=== PATIENT | male | born 1995 | race African-American/Black ===

== ENCOUNTER 2018-02-27 16:25 | Emergency (ER) | payer OTHER ==
[2018-02-27] MEDS ORDERED: DIPH,PERTUS(ACELL)TETVAC-LF 0.5 ML VIAL IM ONE (16:37)
[2018-02-27 16:43] VITALS: RESP 18
[2018-02-27] MEDS ORDERED: HYDROcodone/APAP 5-325MG 1 EACH TAB PO STA (16:43)
--- NOTE | 2018-02-27 17:24 | ED ---
Lower Extremity Injury HPI - General Chief Complaint: Extremity Injury, Lower Stated Complaint: Foot injury Time Seen by Provider: 02/27/18 16:36 Source: patient, RN notes reviewed Mode of arrival: wheelchair Limitations: no limitations - History of Present Illness Initial Comments: This is a 22-year-old male who presents to the emergency department with chief complaint of left foot injury. Patient states that 30 minutes prior to arrival he was unloading a [employer] truck. He states that a refrigerator fell onto his left foot. He states that initially after, he did have normal range of motion of the foot. He notices when he moves his foot the bleeding increases. Patient is wearing a sock and is saturated in blood. Patient states that he is unsure if he is up-to-date with his tetanus vaccination. Denies any other injuries or trauma. Denies fever, chills, chest pain, shortness of breath, abdominal pain, nausea or vomiting, constipation or diarrhea, dysuria or hematuria, numbness or tingling, headache or vision changes. - Related Data Previous Rx's Medication Instructions Recorded Ibuprofen [Motrin] 600 mg PO Q6HR PRN #20 tab 04/19/16 Lidocaine Viscous [Xylocaine 5 ml PO BID PRN 10 Days ml 04/19/16 Viscous 2%] Ibuprofen 600 mg PO Q6HR #30 tablet 02/27/18 Allergies Allergy/AdvReac Type Severity Reaction Status Date / Time No Known Allergies Allergy Verified 02/27/18 16:42 Review of Systems ROS Statement: Those systems with pertinent positive or pertinent negative responses have been documented in the HPI. ROS Other: All systems not noted in ROS Statement are negative. Past Medical History Past Medical History: No Reported History History of Any Multi-Drug Resistant Organisms: None Reported Additional Past Surgical History / Comment(s): cataract surgery Past Psychological History: No Psychological Hx Reported Smoking Status: Never smoker Past Alcohol Use History: Occasional Past Drug Use History: None Reported General Exam - General Exam Comments Initial Comments: General: Awake and alert, well-developed; in no apparent distress. HEENT: Head atraumatic, normocephalic. Pupils are equal, round and reactive to light. Extraocular movements intact. Oropharynx moist without erythema or exudate. Neck: Supple. Normal ROM. Cardiovascular: Regular rate and rhythm. No murmurs, rubs or gallops. Chest symmetrical. Respiratory: Lungs clear to auscultation bilaterally. No wheezes, rales or rhonchi. Normal respiratory effort with no use of accessory muscles. Musculoskeletal: Normal range of motion of left toes and ankle. There is an approximately 0.5 cm laceration to the mid dorsal aspect of the left foot. Surrounding hematoma covering majority of the dorsal aspect. Sensation is intact. Pedal pulses are 2+ equal and palpable bilaterally. Skin: Freeman, warm and dry without rashes. Neurological: Alert and oriented x3. CN II-XII grossly intact. Speech is fluent and answers are appropriate. No focal neuro deficits. Psychiatric: Normal mood and affect. No overt signs of depression or anxiety noted. Limitations: no limitations Course Vital Signs 02/27/18 16:39 Temperature 97.6 F Pulse Rate 99 Respiratory 18 Rate Blood Pressure 110/74 O2 Sat by Pulse 98 Oximetry Medical Decision Making - Medical Decision Making This is a 22-year-old male who presented to the emergency department with chief complaint of left foot injury. He states that a refrigerator fell onto his left foot. He states that he was wearing steel toe boots at the time. On physical examination, there is a large hematoma to the dorsal aspect of the left foot. There is a small overlying laceration. A pressure dressing was placed and patient tolerated well without complication. He is neurovascularly intact and capillary refill is less than 2 seconds. This case was discussed with attending physician, Dr. Flores who also evaluated the patient. X-rays of the left foot revealed no acute fractures or dislocations. It did reveal evidence of a small foreign body. On further investigation, it was determined that this was a small radiopaque object within patient's sock. Patient will be discharged home with recommendation to rest, ice, elevate and apply compression. He will also be given a prescription for ibuprofen. He is to follow-up with a primary care provider within 1-2 days. Patient is in agreement with plan and voices understanding. All questions were answered. - Radiology Data Radiology results: report reviewed X-ray left foot impression: 1. Soft tissue swelling, but negative for fracture or malalignment. 2. Radiopaque 1 mm cutaneous foreign body. Disposition Clinical Impression: Traumatic hematoma of foot Disposition: HOME SELF-CARE Condition: Good Instructions: Hematoma (ED), Foot Contusion (ED) Additional Instructions: Please take medications as prescribed. Please follow up with primary care provider within 1-2 days. Return to emergency department if symptoms should worsen or any concerns arise. Prescriptions: Ibuprofen 600 mg PO Q6HR #30 tablet Is patient prescribed a controlled substance at d/c from ED?: No Referrals: None,Stated [Primary Care Provider] - 1-2 days Kelsea Cleary MD [REFERRING] - 1-2 days Ignacio Casanova MD [STAFF PHYSICIAN] - 1-2 days Time of Disposition: 18:10
--- NOTE | 2018-02-27 17:50 | XR ---
PROCEDURE: XR foot complete LT 3 views DATE AND TIME: 02/27/2018 5:03 PM REFERRING PHYSICIAN: Liv Kruse CLINICAL INDICATION: PHH, Pain following crushing injury, refrigerator fallen foot TECHNIQUE: Department protocol. COMPARISON: None FINDINGS: There is no fracture or malalignment. The soft tissues are remarkable for diffuse soft tissue swelling over the metatarsals. No soft tissue emphysema. However, there is a 1 mm cutaneous radiopaque foreign body in the plantar soft tissues spivey perimposed over the third metacarpal shaft. IMPRESSION: 1. Soft tissue swelling, but negative for fracture or malalignment. 2. Radiopaque 1 mm cutaneous foreign body.
[2018-02-27 18:20] VITALS: BP 155/72; PULSE 90; TEMP 97.3
== END 2018-02-27 18:20 | disposition home or self-care (01) ==
LOC: EC 16:25
DX: S90.32XA Contusion of left foot, initial encounter (principal); Z23 Encounter for immunization; W20.8XXA Other cause of strike by thrown, projected or falling object, initial encounter; Y92.89 Other specified places as the place of occurrence of the external cause
CPT/HCPCS: 90471; 90715; 99283

== ENCOUNTER 2018-03-07 18:39 | Emergency (ER) | payer OTHER ==
[2018-03-07 18:53] VITALS: BP 133/83; PULSE 80; RESP 20; TEMP 98.8
--- NOTE | 2018-03-07 19:49 | XR ---
EXAMINATION TYPE: XR foot complete LT DATE OF EXAM: 03/07/2018 CLINICAL HISTORY: Left foot pain after injury today. TECHNIQUE: Frontal, lateral, and oblique images of the left foot are obtained. COMPARISON: Left foot x-ray from 8 days ago. FINDINGS: There is no acute fracture/dislocation evident in the left foot. Persistent flexion in the distal toes is identified. The joint spaces in the left foot appear within normal limits. The over lying soft tissue appears unremarkable. There is interval removal of the plantar surface foreign body . IMPRESSION: There is no acute fracture or dislocation in the left foot.
--- NOTE | 2018-03-07 20:25 | ED ---
General Adult HPI - General Chief complaint: Extremity Injury, Lower Stated complaint: LEFT FOOT INJURY Time Seen by Provider: 03/07/18 19:32 Source: patient, RN notes reviewed Mode of arrival: wheelchair Limitations: no limitations - History of Present Illness Initial comments: 22-year-old male presents to the emergency department for chief complaint of left foot pain times one week. Patient states that a week ago he was loading a [employer] when he dropped a refrigerator on his foot. Patient states it has been painful since then. Patient has been able to walk on the foot. He has been taking Motrin and icing it. He states he has tried to keep it elevated but hasn 't done it too much. He states that since he has been at the emergency department he has kept it elevated in the swelling has decreased. Patient states it is painful and would like something for pain. Patient denies any other injuries during this incident including neck or back injuries. Patient has no other complaints at this time including shortness of breath, chest pain, abdominal pain, nausea or vomiting, headache, or visual changes. - Related Data Home Medications Medication Instructions Recorded Confirmed Ibuprofen 600 mg PO Q6HR PRN 03/07/18 03/07/18 Previous Rx's Medication Instructions Recorded Acetaminophen-Codeine 300-30mg 1 tab PO Q8H PRN #9 tablet 03/07/18 [Tylenol #3] Cephalexin [Keflex] 500 mg PO Q12HR #20 cap 03/07/18 Ibuprofen [Motrin] 600 mg PO Q8HR PRN #20 tab 03/07/18 Allergies Allergy/AdvReac Type Severity Reaction Status Date / Time No Known Allergies Allergy Verified 03/07/18 19:25 Review of Systems ROS Statement: Those systems with pertinent positive or pertinent negative responses have been documented in the HPI. ROS Other: All systems not noted in ROS Statement are negative. Past Medical History Past Medical History: No Reported History History of Any Multi-Drug Resistant Organisms: None Reported Additional Past Surgical History / Comment(s): cataract surgery Past Psychological History: No Psychological Hx Reported Smoking Status: Never smoker Past Alcohol Use History: Occasional Past Drug Use History: None Reported General Exam Limitations: no limitations General appearance: alert, in no apparent distress Neck exam: Present: normal inspection, full ROM. Absent: tenderness, meningismus, lymphadenopathy Respiratory exam: Present: normal lung sounds bilaterally. Absent: respiratory distress, wheezes, rales, rhonchi, stridor Cardiovascular Exam: Present: regular rate, normal rhythm, normal heart sounds. Absent: systolic murmur, diastolic murmur, rubs, gallop, clicks Extremities exam: Present: full ROM (Patient has full range of motion of the left ankle and foot.), tenderness (Patient has tenderness to the dorsal aspect of the left foot. No tenderness to the lateral or medial malleoli.), normal capillary refill (Cap refill < 2 seconds in BLE. Pedal pulse 2+ in BLE. ), joint swelling (Patient has moderate swelling on the dorsal aspect of the L foot. No ecchymosis noted.), other (Patient has moderate swelling of the left foot. there is also a small break in the skin that appears to be a scab. No signs of infection or cellulitis including spreading redness, streaking redness , or drainage from the area.) Course Vital Signs 03/07/18 18:50 Temperature 98.8 F Pulse Rate 80 Respiratory 20 Rate Blood Pressure 133/83 O2 Sat by Pulse 99 Oximetry Medical Decision Making - Medical Decision Making 22-year-old male presents to the emergency department for chief complaint of left foot pain after dropping a refrigerator on his foot about one week ago. Patient has been able to walk on it. He states the dorsal aspect of the foot is painful. Patient states the swelling is getting better over the week. On exam the dorsal aspect of the foot is swollen. Neurovascular intact. There is a small scab that will be treated with Keflex to prevent any infection. No signs of infection now including cellulitic changes or drainage from the area. No abscess. No fevers at home. X-ray demonstrates no acute fractures or abnormalities. Patient will be wrapped with an Abisai wrap. He was educated to take Motrin for pain and Tylenol 3 if pain is severe. He will keep the foot elevated and rest and ice it. He will return to the emergency department if he notices any worsening symptoms. Otherwise he will follow-up with primary care in 1-2 days. Disposition Clinical Impression: Foot injury Disposition: HOME SELF-CARE Condition: Good Instructions: RICE Therapy (ED) Additional Instructions: Please take Motrin for pain relief. You may take Tylenol 3 if pain is severe. Take Keflex as directed. Remember to rest, ice, and elevate the right foot as much as possible. Monitor for any worsening symptoms and return to the emergency department if you notice any. Otherwise follow-up with primary care in 1-2 days. Prescriptions: Acetaminophen-Codeine 300-30mg [Tylenol #3] 1 tab PO Q8H PRN #9 tablet PRN Reason: Pain Cephalexin [Keflex] 500 mg PO Q12HR #20 cap Ibuprofen [Motrin] 600 mg PO Q8HR PRN #20 tab PRN Reason: Pain Is patient prescribed a controlled substance at d/c from ED?: Yes Referrals: None,Stated [Primary Care Provider] - 1-2 days Hernan Juan MD [STAFF PHYSICIAN] - 1-2 days Time of Disposition: 20:33
== END 2018-03-07 20:36 | disposition home or self-care (01) ==
LOC: EC 18:39
DX: S99.922A Unspecified injury of left foot, initial encounter (principal); W20.8XXA Other cause of strike by thrown, projected or falling object, initial encounter; Y92.009 Unspecified place in unspecified non-institutional (private) residence as the place of occurrence of the external cause
CPT/HCPCS: 99283

== ENCOUNTER 2019-04-01 18:00 | Emergency (ER) | payer OTHER ==
[2019-04-01 18:32] VITALS: BP 106/58; PULSE 73; RESP 18; TEMP 98.3
[2019-04-01] MEDS ORDERED: KETOROLAC 30 MG/ML 1 ML VIAL IM STA (19:24)
--- NOTE | 2019-04-01 19:35 | ED ---
Back Pain HPI - General Chief Complaint: Back Pain/Injury Stated Complaint: rt lung pain Time Seen by Provider: 04/01/19 19:08 Source: patient Limitations: no limitations - History of Present Illness Initial Comments: Patient is a 23-year-old male presents emergency Department with right thoracic pain. Patient reports chronic pain in the same region. Patient reports the pain is located along the anterior serratus and latissimus dorsi muscle.. Patient reports pain with pushing and pulling movements with the right hand. Patient reports the pain does not radiate anywhere. Patient reports attempting to remove some the from his pocket when he developed severe onset of the pain about 4 hours ago.. Patient denies syncope, nausea, vomiting, chest pain, chest tightness, shortness of breath or blurry vision. Patient denies taking any medication to alleviate the pain. - Related Data Home Medications Medication Instructions Recorded Confirmed Ibuprofen 600 mg PO Q6HR PRN 03/07/18 03/07/18 Previous Rx's Medication Instructions Recorded Acetaminophen-Codeine 300-30mg 1 tab PO Q8H PRN #9 tablet 03/07/18 [Tylenol #3] Cephalexin [Keflex] 500 mg PO Q12HR #20 cap 03/07/18 Ibuprofen [Motrin] 600 mg PO Q8HR PRN #20 tab 03/07/18 Cyclobenzaprine [Flexeril] 5 mg PO TID PRN #15 tablet 04/01/19 Allergies Allergy/AdvReac Type Severity Reaction Status Date / Time No Known Allergies Allergy Verified 03/07/18 19:25 Review of Systems ROS Statement: Those systems with pertinent positive or pertinent negative responses have been documented in the HPI. ROS Other: All systems not noted in ROS Statement are negative. Past Medical History Past Medical History: No Reported History History of Any Multi-Drug Resistant Organisms: None Reported Additional Past Surgical History / Comment(s): cataract surgery Past Psychological History: No Psychological Hx Reported Smoking Status: Former smoker Past Alcohol Use History: Occasional Past Drug Use History: None Reported General Exam Limitations: no limitations General appearance: alert, in no apparent distress Head exam: Present: normocephalic, normal inspection Eye exam: Present: normal appearance, PERRL, EOMI Pupils: Present: normal accommodation ENT exam: Present: normal exam, mucous membranes moist Neck exam: Present: normal inspection Respiratory exam: Present: normal lung sounds bilaterally Cardiovascular Exam: Present: regular rate, normal rhythm, normal heart sounds Extremities exam: Present: normal inspection, full ROM Back exam: Present: normal inspection, tenderness (Tenderness over the right serratus anterior latissimus dorsi.). Absent: full ROM (Limited due to pain with pushing and pulling movements of the right hand.), CVA tenderness (R), CVA tenderness (L), muscle spasm, paraspinal tenderness, vertebral tenderness Neurological exam: Present: alert, oriented X3 Psychiatric exam: Present: normal affect, normal mood Skin exam: Present: warm, intact, normal color Course Vital Signs 04/01/19 18:28 Temperature 98.3 F Pulse Rate 73 Respiratory 18 Rate Blood Pressure 106/58 O2 Sat by Pulse 98 Oximetry Medical Decision Making - Medical Decision Making Patient is a 23-year-old male presents emergency Department with right thoracic pain. Based on physical examination a suspect the patient to have muscle sprain along the right serratus anterior. Patient advised to follow with orthopedics. Will be discharged with Flexeril. Patient advised not to drive up a heavy machinery when taking medication. I counseled the patient for smoking cessation for greater than 3 minutes. Patient was to return to emergency department if symptoms worsen. Case discussed with physician. Disposition Clinical Impression: Strain of latissimus dorsi muscle Disposition: HOME SELF-CARE Condition: Stable Instructions (If sedation given, give patient instructions): Back Pain (ED) Additional Instructions: Please take prescribed medication as directed. Please follow with orthopedics. Please return to emergency department if symptoms worsen. Prescriptions: Cyclobenzaprine [Flexeril] 5 mg PO TID PRN #15 tablet PRN Reason: Muscle Spasm Is patient prescribed a controlled substance at d/c from ED?: No Referrals: None,Stated [Primary Care Provider] - 1-2 days Ham Pozo DO [Doctor of Osteopathic Medicine] - 1-2 days Time of Disposition: 19:34
== END 2019-04-01 20:05 | disposition home or self-care (01) ==
LOC: EC 18:00
DX: S29.012A Strain of muscle and tendon of back wall of thorax, initial encounter (principal); Z71.6 Tobacco abuse counseling; Z87.891 Personal history of nicotine dependence
CPT/HCPCS: 99283; 99406; 96372; J1885

== ENCOUNTER 2021-05-16 03:33 | Emergency (ER) | payer OTHER ==
--- NOTE | 2021-05-16 03:56 | ED ---
Skin/Abscess/FB HPI - General Chief complaint: Skin/Abscess/Foreign Body Stated complaint: Abscess Time Seen by Provider: 05/16/21 03:51 Source: patient, RN notes reviewed, old records reviewed Mode of arrival: ambulatory Limitations: no limitations - History of Present Illness Initial comments: This is a 25-year-old male DF for evaluation patient presents today for evaluation of severe anterior abdominal pain. Patient states is severe pain in the left side of his abdomen he does note that he did shave that area of his abdomen. Patient states he has had a history of abscesses before as well as other infections but never ended have drained before. Patient states he has been able to express some drainage from this area but nothing significant. MD complaint: abscess/boil -: days(s) Tetanus Up to Date: yes Location: chest Severity: moderate Severity scale (1-10): 7 Quality: stabbing, aching Improves with: none Worsens with: none Context: none Associated symptoms: denies other symptoms - Related Data Home Medications Medication Instructions Recorded Confirmed Ibuprofen 600 mg PO Q6HR PRN 03/07/18 03/07/18 Previous Rx's Medication Instructions Recorded Acetaminophen-Codeine 300-30mg 1 tab PO Q8H PRN #9 tablet 03/07/18 [Tylenol #3] Cephalexin [Keflex] 500 mg PO Q12HR #20 cap 03/07/18 Ibuprofen [Motrin] 600 mg PO Q8HR PRN #20 tab 03/07/18 Cyclobenzaprine [Flexeril] 5 mg PO TID PRN #15 tablet 04/01/19 Sulfamethox-Tmp 800-160Mg [Bactrim 2 tab PO BID #40 tab 05/16/21 DS 800-160 mg] Allergies Allergy/AdvReac Type Severity Reaction Status Date / Time No Known Allergies Allergy Verified 05/16/21 03:39 Review of Systems ROS Statement: Those systems with pertinent positive or pertinent negative responses have been documented in the HPI. ROS Other: All systems not noted in ROS Statement are negative. Past Medical History Past Medical History: No Reported History History of Any Multi-Drug Resistant Organisms: None Reported Additional Past Surgical History / Comment(s): cataract surgery Past Psychological History: No Psychological Hx Reported Smoking Status: Current every day smoker Past Alcohol Use History: Occasional Past Drug Use History: Marijuana General Exam - General Exam Comments Initial Comments: Anterior abdomen does have significant abdominal wall abscess Limitations: no limitations General appearance: alert, in no apparent distress Head exam: Present: atraumatic, normocephalic, normal inspection Eye exam: Present: normal appearance, PERRL, EOMI. Absent: scleral icterus, conjunctival injection, periorbital swelling ENT exam: Present: normal exam, mucous membranes moist Neck exam: Present: normal inspection. Absent: tenderness, meningismus, lymphadenopathy Respiratory exam: Present: normal lung sounds bilaterally. Absent: respiratory distress, wheezes, rales, rhonchi, stridor Cardiovascular Exam: Present: regular rate, normal rhythm, normal heart sounds. Absent: systolic murmur, diastolic murmur, rubs, gallop, clicks GI/Abdominal exam: Present: soft, normal bowel sounds. Absent: distended, tenderness, guarding, rebound, rigid Extremities exam: Present: normal inspection, full ROM, normal capillary refill. Absent: tenderness, pedal edema, joint swelling, calf tenderness Back exam: Present: normal inspection Neurological exam: Present: alert, oriented X3, CN II-XII intact Psychiatric exam: Present: normal affect, normal mood Skin exam: Present: warm, dry, intact, normal color. Absent: rash Course Vital Signs 05/16/21 05/16/21 03:35 04:43 Temperature 98.6 F 97.6 F Pulse Rate 91 82 Respiratory 20 18 Rate Blood Pressure 124/76 132/77 O2 Sat by Pulse 99 97 Oximetry - Reevaluation(s) Reevaluation #1: 05/16/21 Medical record is reviewed Patient symptoms are improved here in the emergency department Patient informed of results and questions answered Patient is in no acute distress Procedures - Incision & Drainage Consent Obtained: verbal consent Site: abdomen Anesthetic Used: lidocaine 1%, with epi I&D Cleaning Method: Betadine Sterile Field Used?: Yes Scalpel Used: #11 Needle Aspiration Performed?: No Irrigation Performed?: Yes I&D Drainage Obtained: Pus, Blood Culture Obtained?: No Complications: pain Patient Tolerated Procedure: well Medical Decision Making - Medical Decision Making 25 male with abscess likely related to ingrown hair shaving on anterior abdominal wall. Patient has I&D here in the ER placed on antibiotics and can be discharged home Disposition Clinical Impression: Abdominal wall abscess, Cellulitis Disposition: HOME SELF-CARE Condition: Good Instructions (If sedation given, give patient instructions): Cellulitis (ED), Abscess Incision and Drainage (ED), Folliculitis (ED), Abscess (ED) Prescriptions: Sulfamethox-Tmp 800-160Mg [Bactrim DS 800-160 mg] 2 tab PO BID #40 tab Is patient prescribed a controlled substance at d/c from ED?: No Referrals: None,Stated [Primary Care Provider] - 1-2 days
[2021-05-16] MEDS ORDERED: SULFAMETH-TMP DS STARTER PACK 2 TAB BTL PO STA (04:18)
[2021-05-16] MEDS ORDERED: Acetaminophen-Codeine 300-30mg TAB PO STA (04:18)
[2021-05-16] MEDS ORDERED: SULFAMETHOX-TMP 800-160MG 1 EACH TAB PO STA (04:18)
[2021-05-16] MEDS ORDERED: ACET/COD 300 MG/30 MG STARTER PACK 6 TAB BTL PO STA (04:18)
[2021-05-16 04:45] VITALS: BP 132/77; PULSE 82; RESP 18; TEMP 97.6
== END 2021-05-16 04:43 | disposition home or self-care (01) ==
LOC: EC 03:33
DX: L02.211 Cutaneous abscess of abdominal wall (principal); L03.311 Cellulitis of abdominal wall; F17.200 Nicotine dependence, unspecified, uncomplicated; F12.90 Cannabis use, unspecified, uncomplicated; Z79.1 Long term (current) use of non-steroidal anti-inflammatories (NSAID)
CPT/HCPCS: 10060; 99283